=== PATIENT | female | born 1975 | race Asian ===

== ENCOUNTER 2023-02-19 20:18 | Observation (INO) ==
[2023-02-19] MEDS ORDERED: SODIUM CHLORIDE 0.9% 500 ML IV STA (20:45)
--- NOTE | 2023-02-19 21:11 | Emergency Department Note ---
Impression & Plan Atrial fibrillation with rapid ventricular response ED Provider Note INFORMANT: Patient and ED PROVIDER(S): Amos Scott MD CHIEF COMPLAINT: Palpitations PLAN: Disposition: Admitted Condition: Good Outpatient prescription management: none Referral: None . Patient has no history of the same. Blood work was obtained. She had unremarkable CBC, chemistry panel, and troponin MEDICAL DECISION MAKING: Patient presented because of palpitations. Language services used for translation. She was mildly tachycardic. ECG was performed and revealed atrial fibrillation except for a mildly low potassium. Patient was rate controlled on her own without direct intervention. Consultation was made with [facility] cardiology, Dr. Butt. Case discussed and diagnostics were reviewed. He recommended initiation of beta-lenny, repleting the potassium, and anticoagula tion with heparin and admission. We discussed oral metoprolol. These medications were ordered. Discussed with patient and . Consultation was made with Dr. Aneesh Coe, [facility] hospitalist service. Patient was evaluated in the ER admitted. Discussed with financial sales manager After review of the information above and other included data, I feel the patient requires admission. Triage Nursing notes reviewed and agree them. Vital Signs: reviewed and remarkable for no significant abnormalities Prior /Outside records reviewed: none Differential diagnosis: Premature contractions, electrolyte abnormality, cardiac dysrhythmia, thyroid dysfunction, pulmonary embolism, infection, gastrointestinal, as well as other pathologies. Diagnostics, as interpreted by me: ECG: Lead ECG reveals atrial fibrillation with rapid ventricular response at 102 bpm. Low voltage QRS. No ST elevation or depression. Nonspecific ST. Cardiac Monitoring: Cardiac monitoring ordered by me: The patient was placed on continuous cardiac monitoring and observed. It revealed a atrial fibrillation at 80 bpm. Medical decision rules: none Imaging studies: Chest x-ray. Findings: A chest x-ray was performed and revealed no pneumothorax, effusion, infiltrate, pulmonary edema, free air under the diaphragm, or wide mediastinum. Impression: No acute disease. HPI: The patient is a 48 year old female who presents to the Emergency Room with complaints of palpitations. This started at 1500 and is persisting. The patient also notes the following associated symptoms, none. The patient has taken no medication for relieving factors. Current pain is rated as 0/10. Notes occasional brief palpitations that resolved spontaneously. Pt denies LOC, headache, fevers, chills, diaphoresis, visual changes, neck pain, chest pain, breathing difficulties, nausea, vomiting, abdominal pain, back pain, numbness, weakness, or other complaints. PAST MEDICAL HISTORY: See Below, endometriosis PAST SURGICAL HISTORY: See Below, c section SOCIAL HISTORY: See Below, HOME MEDICATIONS: See Below ALLERGIES: See Below VITALS: See Below PHYSICAL EXAMINATION: GENERAL: Awake, alert, well-appearing, in no distress HENT: Normocephalic, atraumatic. Oropharynx unremarkable. EYES: Normal conjunctiva. Sclera non-icteric. NECK: Inspection normal. Non-tender. Supple. No nuchal rigidity. FROM. No masses. RESPIRATORY: Clear to auscultation. No wheezes. No rales. Normal respiratory effort. CARDIAC: Borderline tachycardic rate. irregular rhythm. No murmurs. No rubs. Extremities warm and well perfused. Pulses equal. No JVD. GI: Soft, non-distended. No tenderness to palpation. No rebound or guarding. No masses. RECTAL: Deferred. MUSCULOSKELETAL: Atraumatic. Chest examination reveals no tenderness. The back is symmetrical on inspection without obvious abnormality. There is no CVA tenderness to palpation. No joint edema. LOWER EXTREMITIES: Calves are equal size bilaterally and non-tender. No edema. No discoloration. NEURO: Normal sensorium. No sensory or motor deficits noted. SKIN: No rash or jaundice noted. Past Med/Surg History Medical History (Updated 02/19/23 @ 21:11 by Amos Scott MD) Endometriosis Surgical History History of laparoscopy Social History Smoking Status: Never smoker Preferred Language: Burundian Communication Tools: IPad marital status: current occupational status: unemployed Feels Safe at Home: Yes Allergies Allergies Allergy/AdvReac Type Severity Reaction Status Date / Time No Known Allergies Allergy Unverified 02/20/23 00:30 Home Meds Home Medications Medication Instructions Recorded Confirmed omeprazole 40 mg capsule,delayed 40 mg PO QAM 02/20/23 02/20/23 release sucralfate 1 gram tablet 1 g PO BID 02/20/23 02/20/23 Results & Data (ED) Vital Signs Vital Signs - 24 hr 02/19/23 20:24 02/19/23 20:47 02/19/23 20:46 Temperature 36.8 C Temperature Source Temporal Artery Scan Pulse Rate 91 H 94 H 92 H Pulse Rate from SpO2 Sensor 92 H Respiratory Rate 17 26 H Respiratory Effort / Characteristics Non-Labored Spontaneous Respiratory Depth Normal Blood Pressure 141/87 H 159/109 H Blood Pressure Mean 105 125 Blood Pressure Position Sitting Pulse Oximetry 100 100 Oxygen Delivery Method Room Air Sepsis Recent Fever Within 48 Hours No Sepsis New/Unexplained Change in Mental Status No Sepsis Action Taken by Nursing No Action Required 02/19/23 21:00 02/19/23 21:15 02/19/23 21:30 Temperature Temperature Source Pulse Rate 100 H 78 83 Pulse Rate from SpO2 Sensor 97 H 78 80 Respiratory Rate 13 18 17 Respiratory Effort / Characteristics Respiratory Depth Blood Pressure 150/98 H 154/113 H 130/98 Blood Pressure Mean 115 126 108 Blood Pressure Position Pulse Oximetry 100 100 100 Oxygen Delivery Method Sepsis Recent Fever Within 48 Hours Sepsis New/Unexplained Change in Mental Status Sepsis Action Taken by Nursing 02/19/23 22:00 02/19/23 22:15 02/19/23 22:30 Temperature Temperature Source Pulse Rate 72 76 74 Pulse Rate from SpO2 Sensor 81 83 80 Respiratory Rate 22 22 22 Respiratory Effort / Characteristics Respiratory Depth Blood Pressure 117/82 113/86 118/89 Blood Pressure Mean 93 95 98 Blood Pressure Position Pulse Oximetry 100 100 100 Oxygen Delivery Method Sepsis Recent Fever Within 48 Hours Sepsis New/Unexplained Change in Mental Status Sepsis Action Taken by Nursing 02/19/23 22:45 02/20/23 01:00 Temperature Temperature Source Pulse Rate 74 80 Pulse Rate from SpO2 Sensor 77 Respiratory Rate 21 Respiratory Effort / Characteristics Respiratory Depth Blood Pressure 128/98 Blood Pressure Mean 108 Blood Pressure Position Pulse Oximetry 99 Oxygen Delivery Method Sepsis Recent Fever Within 48 Hours Sepsis New/Unexplained Change in Mental Status Sepsis Action Taken by Nursing Laboratory Data 02/19/23 20:52 02/19/23 20:52 Lab Results 02/19/23 02/19/23 02/19/23 Range/Units 20:52 20:52 20:52 WBC 8.26 (4.8-10.8) K/ul RBC 4.46 (4.20-5.40) M/uL Hgb 13.7 (12.0-16.0) g/dl Hct 39.3 (37.0-47.0) % MCV 88.1 (80.0-100.0) fL MCH 30.7 (25.0-34.0) pg MCHC 34.9 (32.0-36.0) g/dL RDW Std Deviation 39.6 (36.4-46.3) fL RDW Coeff of Ruperto 12.4 (11.5-14.5) % Plt Count 173 (130-400) K/uL MPV 12.4 (9.4-12.4) fL Immature Gran % (Auto) 0.4 % Neut % (Auto) 72.9 % Lymph % (Auto) 20.2 % [place] % (Auto) 5.1 % Eos % (Auto) 1.0 % Baso % (Auto) 0.4 % Neut # (Auto) 6.03 (1.40-6.50) K/uL Lymph # (Auto) 1.67 (1.2-3.4) K/uL [place] # (Auto) 0.42 (0.11-0.59) K/uL Eos # (Auto) 0.08 (0-0.50) K/uL Baso # (Auto) 0.03 (0-0.2) K/uL Immature Gran # (Auto) 0.03 (0.01-0.20) K/uL PT (9.0-12.0) Seconds INR (0.9-1.1) APTT (21.0-31.0) Seconds PTT Ratio D-Dimer < 190 (0-500) ug/L FEU Sodium 138 (136-145) mmol/L Potassium 3.1 L (3.5-5.1) mmol/L Chloride 106 (98-107) mmol/L Carbon Dioxide 24 (21-32) mmol/L Anion Gap 8 (3-11) BUN 10 (6-23) mg/dl Creatinine 0.67 (0.6-1.2) mg/dl Est Cr Clr Drug Dosing 79.3 ml/min Est GFR ( Amer) 122.2 ml/min Est GFR (Non-Af Amer) 105.4 ml/min BUN/Creatinine Ratio 14.9 (10-20) Glucose 106 H (70-99(Fasting)) mg/dl Calcium 8.8 (8.6-10.3) mg/dl Magnesium 2.0 (1.7-2.4) mg/dl Total Bilirubin 0.4 (0.2-1.0) mg/dl AST 16 (13-39) U/L ALT 8 (7-52) U/L Alkaline Phosphatase 33 L (34-104) U/L Troponin I High Sens 3.2 (0-14) pg/ml Total Protein 7.0 (6.0-8.3) gm/dl Albumin 4.4 (3.4-5.0) gm/dl Globulin 2.6 (2.5-4.0) gm/dl Albumin/Globulin Ratio 1.7 (0.9-2) TSH (0.300-4.500) uIu/ml HCG, Qual (Negative) SARS-CoV-2, RNA, NAAT (NEGATIVE) 02/19/23 02/19/23 02/20/23 Range/Units 20:52 20:53 Unknown WBC (4.8-10.8) K/ul RBC (4.20-5.40) M/uL Hgb (12.0-16.0) g/dl Hct (37.0-47.0) % MCV (80.0-100.0) fL MCH (25.0-34.0) pg MCHC (32.0-36.0) g/dL RDW Std Deviation (36.4-46.3) fL RDW Coeff of Ruperto (11.5-14.5) % Plt Count (130-400) K/uL MPV (9.4-12.4) fL Immature Gran % (Auto) % Neut % (Auto) % Lymph % (Auto) % [place] % (Auto) % Eos % (Auto) % Baso % (Auto) % Neut # (Auto) (1.40-6.50) K/uL Lymph # (Auto) (1.2-3.4) K/uL [place] # (Auto) (0.11-0.59) K/uL Eos # (Auto) (0-0.50) K/uL Baso # (Auto) (0-0.2) K/uL Immature Gran # (Auto) (0.01-0.20) K/uL PT 10.6 (9.0-12.0) Seconds INR 1.0 (0.9-1.1) APTT 26.3 (21.0-31.0) Seconds PTT Ratio 0.9 D-Dimer (0-500) ug/L FEU Sodium (136-145) mmol/L Potassium (3.5-5.1) mmol/L Chloride (98-107) mmol/L Carbon Dioxide (21-32) mmol/L Anion Gap (3-11) BUN (6-23) mg/dl Creatinine (0.6-1.2) mg/dl Est Cr Clr Drug Dosing ml/min Est GFR ( Amer) ml/min Est GFR (Non-Af Amer) ml/min BUN/Creatinine Ratio (10-20) Glucose (70-99(Fasting)) mg/dl Calcium (8.6-10.3) mg/dl Magnesium (1.7-2.4) mg/dl Total Bilirubin (0.2-1.0) mg/dl AST (13-39) U/L ALT (7-52) U/L Alkaline Phosphatase (34-104) U/L Troponin I High Sens (0-14) pg/ml Total Protein (6.0-8.3) gm/dl Albumin (3.4-5.0) gm/dl Globulin (2.5-4.0) gm/dl Albumin/Globulin Ratio (0.9-2) TSH 1.127 (0.300-4.500) uIu/ml HCG, Qual (Negative) SARS-CoV-2, RNA, NAAT NEGATIVE (NEGATIVE) 02/20/23 Range/Units Unknown WBC (4.8-10.8) K/ul RBC (4.20-5.40) M/uL Hgb (12.0-16.0) g/dl Hct (37.0-47.0) % MCV (80.0-100.0) fL MCH (25.0-34.0) pg MCHC (32.0-36.0) g/dL RDW Std Deviation (36.4-46.3) fL RDW Coeff of Ruperto (11.5-14.5) % Plt Count (130-400) K/uL MPV (9.4-12.4) fL Immature Gran % (Auto) % Neut % (Auto) % Lymph % (Auto) % [place] % (Auto) % Eos % (Auto) % Baso % (Auto) % Neut # (Auto) (1.40-6.50) K/uL Lymph # (Auto) (1.2-3.4) K/uL [place] # (Auto) (0.11-0.59) K/uL Eos # (Auto) (0-0.50) K/uL Baso # (Auto) (0-0.2) K/uL Immature Gran # (Auto) (0.01-0.20) K/uL PT (9.0-12.0) Seconds INR (0.9-1.1) APTT (21.0-31.0) Seconds PTT Ratio D-Dimer (0-500) ug/L FEU Sodium (136-145) mmol/L Potassium (3.5-5.1) mmol/L Chloride (98-107) mmol/L Carbon Dioxide (21-32) mmol/L Anion Gap (3-11) BUN (6-23) mg/dl Creatinine (0.6-1.2) mg/dl Est Cr Clr Drug Dosing ml/min Est GFR ( Amer) ml/min Est GFR (Non-Af Amer) ml/min BUN/Creatinine Ratio (10-20) Glucose (70-99(Fasting)) mg/dl Calcium (8.6-10.3) mg/dl Magnesium (1.7-2.4) mg/dl Total Bilirubin (0.2-1.0) mg/dl AST (13-39) U/L ALT (7-52) U/L Alkaline Phosphatase (34-104) U/L Troponin I High Sens (0-14) pg/ml Total Protein (6.0-8.3) gm/dl Albumin (3.4-5.0) gm/dl Globulin (2.5-4.0) gm/dl Albumin/Globulin Ratio (0.9-2) TSH (0.300-4.500) uIu/ml HCG, Qual Negative (Negative) SARS-CoV-2, RNA, NAAT (NEGATIVE) Administered Medications Heparin Sodium/Dextrose (Heparin Sodium/Dextrose) 25,000 units in 500 mls @ 11 mls/hr IV .Q24H [facility]; Protocol Stop: 03/22/23 00:14 Last Admin: 02/20/23 01:45 Dose: 550 units/hr, 11 mls/hr Documented By: OLIVIA Co-signed By: SHAYY Discontinued Medications Sodium Chloride (Nss) 500 mls @ 999 mls/hr IV .Q31M STA Stop: 02/19/23 21:15 Last Infusion: 02/19/23 22:39 Dose: 0 mls/hr Documented By: Admin: 02/19/23 20:57 Dose: 999 mls/hr Documented By: OLIVIA Potassium Chloride (K Jamie / Wtr) 10 meq in 100 mls @ 100 mls/hr IV ONE ONE; Protocol Stop: 02/20/23 01:02 Last Admin: 02/20/23 00:26 Dose: 100 mls/hr Documented By: OLIVIA Metoprolol Tartrate (Metoprolol Tartrate 25 Mg Tab) 12.5 mg PO NOW STA Stop: 02/20/23 00:04 Last Admin: 02/20/23 00:22 Dose: 12.5 mg Documented By: OLIVIA Potassium Chloride (Potassium Chloride Crtab 20 Meq Tabcr) 40 meq PO NOW STA Stop: 02/20/23 00:04 Last Admin: 02/20/23 00:23 Dose: 40 meq Documented By: OLIVIA Imaging Data Radiologist's Impression: Chest X-Ray 02/19/23 20:45 SINGLE VIEW CHEST CLINICAL HISTORY: Dysrhythmia FINDINGS: An AP, portable, upright chest radiograph is obtained. No prior studies are available for comparison at the time of dictation. The cardiomediastinal silhouette is unremarkable. The lungs and pleural spaces are clear. No pneumothorax is seen. The bony thorax is grossly intact. IMPRESSION: No active disease in the chest. ACT 112: Negative or not required by law. Electronically signed by: Jeramy Thompson M.D. 02/19/2023 10:36 PM Discharge Plan Visit Data Chief Complaint: Tachycardia Stated Complaint: SOB,FAST HEART RATE ED Provider: Amos Scott Discharge Problem: Atrial fibrillation with rapid ventricular response Forms Stand Alone Forms: [facility] Prescriptions Prescriptions: No Action sucralfate 1 gram tablet 1 g PO BID Rx Instructions: Diissolve 1 tab into 30 ml water to make slurry. omeprazole 40 mg capsule,delayed release(DR/EC) 40 mg PO QAM Referrals Referrals: Uriel Demarco MD [Primary Care Provider] -
[2023-02-19 21:37] LABS: Albumin Globulin Ratio 1.7 (0.9-2); Albumin Level 4.4 gm/dl (3.4-5.0); BUN Creatinine Ratio 14.9 (10-20); Bilirubin,Total 0.4 mg/dl (0.2-1.0); Calcium 8.8 mg/dl (8.6-10.3); Creatinine Clr Calc Pharmacy 79.3 ml/min; Est GFR (African American) 122.2 ml/min; Est GFR (Non-African American) 105.4 ml/min; Globulin 2.6 gm/dl (2.5-4.0); Potassium 3.1 mmol/L (3.5-5.1)
[2023-02-19 21:43] LABS: Troponin I High Sensitivity 3.2 pg/ml (0-14)
[2023-02-19 21:49] LABS: Basophils # (auto) 0.03 K/uL (0-0.2); Basophils % (auto) 0.4 %; Eosinophils # (auto) 0.08 K/uL (0-0.50); Hematocrit (blood only) 39.3 % (37.0-47.0); Hemoglobin 13.7 g/dl (12.0-16.0); Immature Granulocytes # (auto) 0.03 K/uL (0.01-0.20); Immature Granulocytes % (auto) 0.4 %; Lymphocytes # (auto) 1.67 K/uL (1.2-3.4); Lymphocytes % (auto) 20.2 %; Mean Corpuscular Hemoglobin 30.7 pg (25.0-34.0); Mean Corpuscular Hgb Conc 34.9 g/dL (32.0-36.0); Mean Corpuscular Volume 88.1 fL (80.0-100.0); Mean Platelet Volume 12.4 fL (9.4-12.4); Monocytes # (auto) 0.42 K/uL (0.11-0.59); Monocytes % (auto) 5.1 %; Neutrophils # (auto) 6.03 K/uL (1.40-6.50); Neutrophils % (auto) 72.9 %; Platelet Count 173 K/uL (130-400); RDW Coefficient of Variation 12.4 % (11.5-14.5); RDW Standard Deviation 39.6 fL (36.4-46.3); Red Blood Count 4.46 M/uL (4.20-5.40); White Blood Count 8.26 K/ul (4.8-10.8)
[2023-02-19 21:56] LABS: D Dimer < 190 ug/L FEU (0-500)
--- NOTE | 2023-02-19 22:37 | XRay Report ---
SINGLE VIEW CHEST CLINICAL HISTORY: Dysrhythmia FINDINGS: An AP, portable, upright chest radiograph is obtained. No prior studies are available for c omparison at the time of dictation. The cardiomediastinal silhouette is unremarkable. The lungs and p leural spaces are clear. No pneumothorax is seen. The bony thorax is grossly intact. IMPRESSION: No active disease in the chest. ACT 112: Negative or not required by law. Electronically signed by: Jeramy Thompson M.D. 02/19/2023 10:36 PM
[2023-02-20] MEDS ORDERED: METOPROLOL TARTRATE 25 MG TAB PO STA (00:03)
[2023-02-20] MEDS ORDERED: POTASSIUM CHLORIDE CRTAB 20 MEQ TABCR PO STA (00:03)
[2023-02-20] MEDS ORDERED: POTASSIUM CHLORIDE / WTR 10 MEQ/100 ML PLCT IV ONE (00:03)
[2023-02-20] MEDS ORDERED: Heparin IV Adult Wt-Based Low-Dose *NO* Bolus Protocol IV ONE (00:04)
[2023-02-20] MEDS ORDERED: HEPARIN SODIUM/DEXTROSE 25,000 UNITS/500 ML BAG IV SCH (00:15)
[2023-02-20 00:37] LABS: Pregnancy Test, Serum Negative (Negative)
[2023-02-20 00:41] LABS: Partial Thromboplastin Ratio 0.9; Partial Thromboplastin Time 26.3 Seconds (21.0-31.0); Prothrombin Time 10.6 Seconds (9.0-12.0)
--- NOTE | 2023-02-20 01:44 | History & Physical Report ---
Date of Service February 20, 2023 Assessment & Plan (1) Afib: Plan: New onset A-fib Multifactorial: Hypokalemia Personal stressors GERD stable on regimen PCU Beta-lenny for rate control IV heparin for thromboembolic prophylaxis TTE, Cardiology consult Re: New onset A-fib (ER provider already in touch with Dr. Butt.) Replace potassium DVT prophylaxis. IV heparin Full code Patient requesting updates providers. Mr. Wilmer Lees, contact #[phone]. Text document was generated using [employer] voice recognition software. It may contain grammatical or spelling errors. Kindly contact undersigned for clarification of any documentation item in question. History of Present Illness Chief Complaint: Palpitations Primary Care Provider: Uriel Demarco MD History obtained from patient, family, and records. History somewhat limited from patient secondary to language barrier. Medical history significant for GERD, endometriosis. Patient noted palpitations yesterday. No chest pain, no SOB. Some stress related to moved to a new home. Patient noted to be in A-fib at the ER. Lopressor and IV heparin administered at the ER following cardiology recommendations as per ER provider. Medical History as above Surgical History : section, diagnostic laparoscopy for endometriosis Family History : Stomach cancer, no heart disease Personal/Social history : Non-smoker, occasional EtOH intake, housewife Allergies Allergy/AdvReac Type Severity Reaction Status Date / Time No Known Allergies Allergy Unverified 02/20/23 00:30 Home Medications Medication Instructions Recorded Confirmed Type omeprazole 40 mg capsule,delayed 40 mg PO QAM 02/20/23 02/20/23 History release sucralfate 1 gram tablet 1 g PO BID 02/20/23 02/20/23 History Past Med/Surg History Medical History (Updated 02/20/23 @ 06:18 by Aneesh Coe MD) Endometriosis Surgical History History of laparoscopy Social History Smoking Status: Never smoker Hx Alcohol Use: Yes Preferred Language: Mohawk Communication Ability: Impaired Communication Tools: IPad Machine Oiler Required: Video marital status: current occupational status: unemployed Feels Safe at Home: Yes Review of Systems Review of Systems: Could not be reliably obtained secondary to language barrier Physical Exam Physical Exam: GENERAL: Comfortable, pleasant, no respiratory distress SKIN: Normal color, warm HEENT: [place] palpebral conjunctivae, no ptosis, dry buccal mucosa NECK : Supple, no tenderness CHEST : CTA, no tenderness HEART : Irregular, no obvious murmurs ABDOMEN: No distention, nontender EXTREMITIES : No LE swelling/tenderness, no other conspicuous deformities noted NEUROLOGIC : Coherent, no facial asymmetry, no other gross focality Results & Data Results & Data Vital Signs (Past 12 Hours) Vital Signs Temp Pulse Resp BP Pulse Ox O2 Del Method 02/20/23 01:00 80 02/19/23 22:45 74 21 128/98 99 02/19/23 22:30 74 22 118/89 100 02/19/23 22:15 76 22 113/86 100 02/19/23 22:00 72 22 117/82 100 02/19/23 21:30 83 17 130/98 100 02/19/23 21:15 78 18 154/113 H 100 02/19/23 21:00 100 H 13 150/98 H 100 02/19/23 20:46 92 H 26 H 159/109 H 100 02/19/23 20:47 94 H 02/19/23 20:24 36.8 C 91 H 17 141/87 H 100 Room Air Laboratory Results Laboratory Results WBC 8.26 K/ul (4.8-10.8) 02/19/23 20:52 RBC 4.46 M/uL (4.20-5.40) 02/19/23 20:52 Hgb 13.7 g/dl (12.0-16.0) 02/19/23 20:52 Hct 39.3 % (37.0-47.0) 02/19/23 20:52 MCV 88.1 fL (80.0-100.0) 02/19/23 20:52 MCH 30.7 pg (25.0-34.0) 02/19/23 20:52 MCHC 34.9 g/dL (32.0-36.0) 02/19/23 20:52 RDW Std Deviation 39.6 fL (36.4-46.3) 02/19/23 20:52 RDW Coeff of Ruperto 12.4 % (11.5-14.5) 02/19/23 20:52 Plt Count 173 K/uL (130-400) 02/19/23 20:52 MPV 12.4 fL (9.4-12.4) 02/19/23 20:52 Immature Gran % (Auto) 0.4 % 02/19/23 20:52 Neut % (Auto) 72.9 % 02/19/23 20:52 Lymph % (Auto) 20.2 % 02/19/23 20:52 [place] % (Auto) 5.1 % 02/19/23 20:52 Eos % (Auto) 1.0 % 02/19/23 20:52 Baso % (Auto) 0.4 % 02/19/23 20:52 Neut # (Auto) 6.03 K/uL (1.40-6.50) 02/19/23 20:52 Lymph # (Auto) 1.67 K/uL (1.2-3.4) 02/19/23 20:52 [place] # (Auto) 0.42 K/uL (0.11-0.59) 02/19/23 20:52 Eos # (Auto) 0.08 K/uL (0-0.50) 02/19/23 20:52 Baso # (Auto) 0.03 K/uL (0-0.2) 02/19/23 20:52 Immature Gran # (Auto) 0.03 K/uL (0.01-0.20) 02/19/23 20:52 PT 10.6 Seconds (9.0-12.0) 02/20/23 Unknown INR 1.0 (0.9-1.1) 02/20/23 Unknown APTT 26.3 Seconds (21.0-31.0) 02/20/23 Unknown PTT Ratio 0.9 02/20/23 Unknown D-Dimer < 190 ug/L FEU (0-500) 02/19/23 20:52 Sodium 138 mmol/L (136-145) 02/19/23 20:52 Potassium 3.1 mmol/L (3.5-5.1) L 02/19/23 20:52 Chloride 106 mmol/L (98-107) 02/19/23 20:52 Carbon Dioxide 24 mmol/L (21-32) 02/19/23 20:52 Anion Gap 8 (3-11) 02/19/23 20:52 BUN 10 mg/dl (6-23) 02/19/23 20:52 Creatinine 0.67 mg/dl (0.6-1.2) 02/19/23 20:52 Est Cr Clr Drug Dosing 79.3 ml/min 02/19/23 20:52 Est GFR ( Amer) 122.2 ml/min 02/19/23 20:52 Est GFR (Non-Af Amer) 105.4 ml/min 02/19/23 20:52 BUN/Creatinine Ratio 14.9 (10-20) 02/19/23 20:52 Glucose 106 mg/dl (70-99(Fasting)) H 02/19/23 20:52 Calcium 8.8 mg/dl (8.6-10.3) 02/19/23 20:52 Magnesium 2.0 mg/dl (1.7-2.4) 02/19/23 20:52 Total Bilirubin 0.4 mg/dl (0.2-1.0) 02/19/23 20:52 AST 16 U/L (13-39) 02/19/23 20:52 ALT 8 U/L (7-52) 02/19/23 20:52 Alkaline Phosphatase 33 U/L (34-104) L 02/19/23 20:52 Troponin I High Sens 3.2 pg/ml (0-14) 02/19/23 20:52 Total Protein 7.0 gm/dl (6.0-8.3) 02/19/23 20:52 Albumin 4.4 gm/dl (3.4-5.0) 02/19/23 20:52 Globulin 2.6 gm/dl (2.5-4.0) 02/19/23 20:52 Albumin/Globulin Ratio 1.7 (0.9-2) 02/19/23 20:52 TSH 1.127 uIu/ml (0.300-4.500) 02/19/23 20:52 HCG, Qual Negative (Negative) 02/20/23 Unknown SARS-CoV-2, RNA, NAAT NEGATIVE (NEGATIVE) 02/19/23 20:53 Impressions Chest X-Ray 02/19/23 20:45 SINGLE VIEW CHEST CLINICAL HISTORY: Dysrhythmia FINDINGS: An AP, portable, upright chest radiograph is obtained. No prior studies are available for comparison at the time of dictation. The cardiomediastinal silhouette is unremarkable. The lungs and pleural spaces are clear. No pneumothorax is seen. The bony thorax is grossly intact. IMPRESSION: No active disease in the chest. ACT 112: Negative or not required by law. Electronically signed by: Jeramy Thompson M.D. 02/19/2023 10:36 PM Diagnostic Findings EKG as per my interpretation :Rate 105, A-fib, normal axis, T wave abnormalities inferior leads, low voltage
[2023-02-20] MEDS ORDERED: NSS + 20MEQ KCL 20 MEQ/1,000 ML BAG IV ONE (01:50)
[2023-02-20] MEDS ORDERED: POTASSIUM CHLORIDE CRTAB 20 MEQ TABCR PO ONE (02:00)
[2023-02-20] MEDS ORDERED: PROMETHAZINE HCL 6.25 MG in SODIUM CHLORIDE 0.9% 50 ML IV PRN (03:27)
[2023-02-20] MEDS ORDERED: traMADol HCL 50 MG TABLET PO PRN (03:27)
[2023-02-20] MEDS ORDERED: ACETAMINOPHEN 325 MG TAB PO PRN (03:27)
[2023-02-20 08:10] LABS: Basophils # (auto) 0.03 K/uL (0-0.2); Basophils % (auto) 0.4 %; Eosinophils # (auto) 0.04 K/uL (0-0.50); Eosinophils % (auto) 0.5 %; Hematocrit (blood only) 40.3 % (37.0-47.0); Hemoglobin 13.9 g/dl (12.0-16.0); Immature Granulocytes # (auto) 0.11 K/uL (0.01-0.20); Immature Granulocytes % (auto) 1.4 %; Lymphocytes # (auto) 1.38 K/uL (1.2-3.4); Mean Corpuscular Hemoglobin 29.9 pg (25.0-34.0); Mean Corpuscular Hgb Conc 34.5 g/dL (32.0-36.0); Mean Corpuscular Volume 86.7 fL (80.0-100.0); Mean Platelet Volume 12.4 fL (9.4-12.4); Monocytes # (auto) 0.32 K/uL (0.11-0.59); Monocytes % (auto) 4.2 %; Neutrophils # (auto) 5.79 K/uL (1.40-6.50); Neutrophils % (auto) 75.5 %; Platelet Count 180 K/uL (130-400); RDW Coefficient of Variation 12.4 % (11.5-14.5); RDW Standard Deviation 38.8 fL (36.4-46.3); Red Blood Count 4.65 M/uL (4.20-5.40); White Blood Count 7.67 K/ul (4.8-10.8)
[2023-02-20 08:22] LABS: BUN Creatinine Ratio 8.8 (10-20); Calcium 8.8 mg/dl (8.6-10.3); Creatinine Clr Calc Pharmacy 78.2 ml/min; Est GFR (African American) 121.6 ml/min; Est GFR (Non-African American) 104.9 ml/min; Potassium 4.7 mmol/L (3.5-5.1)
--- NOTE | 2023-02-20 08:32 | Hospitalist Progress Note ---
Date of Service February 20, 2023 Assessment & Plan (1) Afib: Plan: New onset A-fib Multifactorial: Hypokalemia Personal stressors GERD stable on regimen PCU Beta-lenny for rate control IV heparin for thromboembolic prophylaxis TTE, cardiology consult Re: New onset A-fib (ER provider already in touch with Dr. Butt.) Replace potassium DVT prophylaxis. IV heparin Full code Patient requesting updates providers. Mr. Wilmer Lees, contact #[phone]. Text document was generated using [employer] voice recognition software. It may contain grammatical or spelling errors. Kindly contact undersigned for clarification of any documentation item in question. Admission and Anticipated Discharge Date Admission Date: February 20, 2023 Results & Data Results & Data Vital Signs (Past 12 Hours) Vital Signs Temp Pulse Pulse Resp BP BP Pulse Ox 02/20/23 08:26 36.5 C 79 20 120/85 99 02/20/23 03:28 71 02/20/23 03:30 02/20/23 03:27 36.6 C 16 129/88 99 02/20/23 03:00 78 20 98 02/20/23 03:00 125/82 02/20/23 02:45 71 20 115/89 98 02/20/23 02:30 70 10 L 117/93 98 02/20/23 02:15 73 0 L 130/91 98 02/20/23 02:00 78 18 115/85 99 02/20/23 01:45 84 13 116/81 98 02/20/23 01:30 79 25 H 139/103 H 100 02/20/23 01:22 74 15 132/97 100 02/20/23 01:15 80 18 179/134 H 100 02/20/23 01:01 83 17 142/92 H 100 02/20/23 00:45 84 18 142/113 H 100 02/20/23 00:30 93 02/20/23 00:15 84 21 129/91 98 02/20/23 00:00 82 20 123/84 97 02/19/23 23:30 91 H 17 125/75 99 02/19/23 23:15 82 24 139/83 99 02/19/23 23:00 75 18 133/76 99 02/20/23 01:00 80 02/19/23 22:45 74 21 128/98 99 02/19/23 22:30 74 22 118/89 100 02/19/23 22:15 76 22 113/86 100 02/19/23 22:00 72 22 117/82 100 02/19/23 21:30 83 17 130/98 100 02/19/23 21:15 78 18 154/113 H 100 02/19/23 21:00 100 H 13 150/98 H 100 02/19/23 20:46 92 H 26 H 159/109 H 100 02/19/23 20:47 94 H O2 Del Method 02/20/23 08:26 Room Air 02/20/23 03:28 02/20/23 03:30 Room Air 02/20/23 03:27 Room Air 02/20/23 03:00 02/20/23 03:00 02/20/23 02:45 02/20/23 02:30 02/20/23 02:15 02/20/23 02:00 02/20/23 01:45 02/20/23 01:30 02/20/23 01:22 02/20/23 01:15 02/20/23 01:01 02/20/23 00:45 02/20/23 00:30 02/20/23 00:15 02/20/23 00:00 02/19/23 23:30 02/19/23 23:15 02/19/23 23:00 02/20/23 01:00 02/19/23 22:45 02/19/23 22:30 02/19/23 22:15 02/19/23 22:00 02/19/23 21:30 02/19/23 21:15 02/19/23 21:00 02/19/23 20:46 02/19/23 20:47 Laboratory Results Short CBC 02/19/23 02/20/23 Range/Units 20:52 07:37 WBC 8.26 7.67 (4.8-10.8) K/ul Hgb 13.7 13.9 (12.0-16.0) g/dl Hct 39.3 40.3 (37.0-47.0) % Plt Count 173 180 (130-400) K/uL BMP 02/19/23 02/20/23 20:52 07:37 Sodium 138 139 Potassium 3.1 L 4.7 D Chloride 106 109 H Carbon Dioxide 24 26 BUN 10 6 Creatinine 0.67 0.68 Glucose 106 H 87 Calcium 8.8 8.8 Liver Function 02/19/23 Range/Units 20:52 Total Bilirubin 0.4 (0.2-1.0) mg/dl AST 16 (13-39) U/L ALT 8 (7-52) U/L Alkaline Phosphatase 33 L (34-104) U/L Albumin 4.4 (3.4-5.0) gm/dl Diagnostic Findings Chest X-Ray 02/19/23 20:45 SINGLE VIEW CHEST CLINICAL HISTORY: Dysrhythmia FINDINGS: An AP, portable, upright chest radiograph is obtained. No prior studies are available for comparison at the time of dictation. The cardiomediastinal silhouette is unremarkable. The lungs and pleural spaces are clear. No pneumothorax is seen. The bony thorax is grossly intact. IMPRESSION: No active disease in the chest. ACT 112: Negative or not required by law. Electronically signed by: Jeramy Thompson M.D. 02/19/2023 10:36 PM Medications Administered Current Inpatient Medications Acetaminophen (Acetaminophen 325 Mg Tab) 650 mg PO Q6H PRN PRN Reason: Fever/Pain Stop: 03/22/23 03:26 Heparin Sodium/Dextrose (Heparin Sodium/Dextrose) 25,000 units in 500 mls @ 11 mls/hr IV .Q24H KAMALJIT; Protocol Stop: 03/22/23 00:14 Last Titration: 02/20/23 07:04 Dose: 550 units/hr, 11 mls/hr Potassium Chloride/Sodium Chloride (Normal Saline W/20 Meq Kcl) 20 meq in 1,000 mls @ 50 mls/hr IV .Q20H ONE; Protocol Stop: 02/20/23 21:49 Last Admin: 02/20/23 04:12 Dose: 50 mls/hr Promethazine HCl 6.25 mg/ (Sodium Chloride) 50.25 mls @ 201 mls/hr IV Q6H PRN PRN Reason: Nausea And Vomiting Stop: 03/22/23 03:26 Metoprolol Tartrate (Metoprolol Tartrate 25 Mg Tab) 12.5 mg PO BID [facility] Stop: 03/22/23 20:59 Pantoprazole Sodium (Pantoprazole 40 Mg Tab) 40 mg PO QAM KAMALJIT Stop: 03/22/23 08:59 Sucralfate (Sucralfate 1 Gm Tab) 1 gm PO BID KAMALJIT Stop: 03/22/23 08:59 Tramadol HCl (Tramadol Hcl 50 Mg Tablet) 25 mg PO Q4H PRN PRN Reason: Pain Stop: 03/22/23 03:26
[2023-02-20 08:41] LABS: Partial Thromboplastin Ratio 1.5
[2023-02-20 08:46] LABS: Partial Thromboplastin Time 41.2 Seconds (21.0-31.0)
[2023-02-20] MEDS ORDERED: SUCRALFATE 1 GM TAB PO SCH (09:00)
[2023-02-20] MEDS ORDERED: PANTOprazole 40 MG TAB PO SCH (09:00)
--- NOTE | 2023-02-20 14:38 | Cardiology Consultation ---
Date of Consultation February 20, 2023 Assessment & Plan (1) Atrial fibrillation with rapid ventricular response: (2) Barretts esophagus: Plan Patient is a 48-year-old female presents with new onset atrial fibrillation and elevated ventricular response rate with sensation of palpitations. No structural heart disease or signs of ischemia. Left atrial size normal Heart rates have come under better control but not completely with low-dose beta-lenny Recommendations: Change metoprolol to tartrate to metoprolol succinate 25 mg daily. Suspect patient will convert to sinus rhythm. Patient to follow heart rate using heart rate monitor watch. If elevated heart rates observed contact cardiology regarding medication adjustment. Anticoagulation with Eliquis 5 mg twice per day x30 days. [id number] 2 score 0 Continue potassium supplement 10 mequivalents p.o. daily post discharge Continue omeprazole and sucralfate Heart healthy diet with adequate hydration. We will arrange cardiology follow-up approximately 14 days History of Present Illness Reason for Consultation: New onset atrial fibrillation Requesting Physician: Dr. Calderón Attending Physician: Octavia Calderón, History of Present Illness Patient is a 48-year-old [place] female without prior history of cardiac disease as underlying medical issues include 1. Nogueira's esophagus on chronic suppressive therapy, routine yearly surveillance Note history obtained using online translation service [id number] Patient presents now noting sensation of palpitations beginning day prior to admission possibly longer. Episode more persistent yesterday and resulted in ER presentations where she was found to be in atrial fibrillation with variable rate response. No other acute findings other than hypokalemia. Patient no prior history of TIA or stroke or underlying cardiac disease. No fevers chills or acute complaints Increased stress emotionally recently with plans to relocate permanently to [facility] in 3-week No bleeding issues. GI issues stable. Taking medications as prescribed Laboratory studies notable only for potassium of 3.1. EKG without ischemic. Echocardiogram with essentially normal study Allergies Allergy/AdvReac Type Severity Reaction Status Date / Time No Known Allergies Allergy Unverified 02/20/23 00:30 Home Medications Medication Instructions Recorded Confirmed Type omeprazole 40 mg capsule,delayed 40 mg PO QAM 02/20/23 02/20/23 History release sucralfate 1 gram tablet 1 g PO BID 02/20/23 02/20/23 History Patient History Medical History Endometriosis Surgical History History of laparoscopy Social History Smoking Status: Never smoker Hx Alcohol Use: Yes Preferred Language: Cuban Communication Ability: Impaired Communication Tools: IPad [employer] E Business Developer Required: Video marital status: current occupational status: unemployed Feels Safe at Home: Yes Physical Exam Constitutional: + thin; no acute distress Eyes: PERRL, conjunctivae normal, anicteric sclerae ENMT: external ear and nose normal, oropharynx normal Neck: trachea midline, no thyromegaly Respiratory: normal respiratory effort, lungs clear to auscultation Cardiovascular: Rate/Rhythm: + irregularly irregular Heart Sounds: normal S1 and normal S2; no murmur Vessels: no JVD Extremities: no edema Gastrointestinal (Abdomen): normal bowel sounds, soft, nontender, no hepatosplenomegaly Skin: no rashes, warm and dry Results & Data Vital Signs (Past 12 Hours) Vital Signs Temp Pulse Pulse Resp BP BP Pulse Ox 02/20/23 11:30 36.7 C 91 H 20 127/85 98 02/20/23 08:30 72 02/20/23 08:26 36.5 C 79 20 120/85 99 02/20/23 03:28 71 02/20/23 03:30 02/20/23 03:27 36.6 C 16 129/88 99 02/20/23 03:00 78 20 98 02/20/23 03:00 125/82 02/20/23 02:45 71 20 115/89 98 O2 Del Method 02/20/23 11:30 Room Air 02/20/23 08:30 02/20/23 08:26 Room Air 02/20/23 03:28 02/20/23 03:30 Room Air 02/20/23 03:27 Room Air 02/20/23 03:00 02/20/23 03:00 02/20/23 02:45 Laboratory Results Laboratory Results - last 24 hr 02/19/23 02/19/23 02/19/23 20:52 20:52 20:52 WBC 8.26 RBC 4.46 Hgb 13.7 Hct 39.3 MCV 88.1 MCH 30.7 MCHC 34.9 RDW Std Deviation 39.6 RDW Coeff of Ruperto 12.4 Plt Count 173 MPV 12.4 Immature Gran % (Auto) 0.4 Neut % (Auto) 72.9 Lymph % (Auto) 20.2 [place] % (Auto) 5.1 Eos % (Auto) 1.0 Baso % (Auto) 0.4 Neut # (Auto) 6.03 Lymph # (Auto) 1.67 [place] # (Auto) 0.42 Eos # (Auto) 0.08 Baso # (Auto) 0.03 Immature Gran # (Auto) 0.03 PT INR APTT PTT Ratio D-Dimer < 190 Sodium 138 Potassium 3.1 L Chloride 106 Carbon Dioxide 24 Anion Gap 8 BUN 10 Creatinine 0.67 Est Cr Clr Drug Dosing 79.3 Est GFR ( Amer) 122.2 Est GFR (Non-Af Amer) 105.4 BUN/Creatinine Ratio 14.9 Glucose 106 H Calcium 8.8 Magnesium 2.0 Total Bilirubin 0.4 AST 16 ALT 8 Alkaline Phosphatase 33 L Troponin I High Sens 3.2 Total Protein 7.0 Albumin 4.4 Globulin 2.6 Albumin/Globulin Ratio 1.7 TSH HCG, Qual SARS-CoV-2, RNA, NAAT 02/19/23 02/19/23 02/20/23 20:52 20:53 07:37 WBC RBC Hgb Hct MCV MCH MCHC RDW Std Deviation RDW Coeff of Ruperto Plt Count MPV Immature Gran % (Auto) Neut % (Auto) Lymph % (Auto) [place] % (Auto) Eos % (Auto) Baso % (Auto) Neut # (Auto) Lymph # (Auto) [place] # (Auto) Eos # (Auto) Baso # (Auto) Immature Gran # (Auto) PT INR APTT 41.2 H* PTT Ratio 1.5 D-Dimer Sodium Potassium Chloride Carbon Dioxide Anion Gap BUN Creatinine Est Cr Clr Drug Dosing Est GFR ( Amer) Est GFR (Non-Af Amer) BUN/Creatinine Ratio Glucose Calcium Magnesium Total Bilirubin AST ALT Alkaline Phosphatase Troponin I High Sens Total Protein Albumin Globulin Albumin/Globulin Ratio TSH 1.127 HCG, Qual SARS-CoV-2, RNA, NAAT NEGATIVE 02/20/23 02/20/23 02/20/23 07:37 07:37 Unknown WBC 7.67 RBC 4.65 Hgb 13.9 Hct 40.3 MCV 86.7 MCH 29.9 MCHC 34.5 RDW Std Deviation 38.8 RDW Coeff of Ruperto 12.4 Plt Count 180 MPV 12.4 Immature Gran % (Auto) 1.4 Neut % (Auto) 75.5 Lymph % (Auto) 18.0 [place] % (Auto) 4.2 Eos % (Auto) 0.5 Baso % (Auto) 0.4 Neut # (Auto) 5.79 Lymph # (Auto) 1.38 [place] # (Auto) 0.32 Eos # (Auto) 0.04 Baso # (Auto) 0.03 Immature Gran # (Auto) 0.11 PT 10.6 INR 1.0 APTT 26.3 PTT Ratio 0.9 D-Dimer Sodium 139 Potassium 4.7 D Chloride 109 H Carbon Dioxide 26 Anion Gap 4 BUN 6 Creatinine 0.68 Est Cr Clr Drug Dosing 78.2 Est GFR ( Amer) 121.6 Est GFR (Non-Af Amer) 104.9 BUN/Creatinine Ratio 8.8 L Glucose 87 Calcium 8.8 Magnesium Total Bilirubin AST ALT Alkaline Phosphatase Troponin I High Sens Total Protein Albumin Globulin Albumin/Globulin Ratio TSH HCG, Qual SARS-CoV-2, RNA, NAAT 02/20/23 Unknown WBC RBC Hgb Hct MCV MCH MCHC RDW Std Deviation RDW Coeff of Ruperto Plt Count MPV Immature Gran % (Auto) Neut % (Auto) Lymph % (Auto) [place] % (Auto) Eos % (Auto) Baso % (Auto) Neut # (Auto) Lymph # (Auto) [place] # (Auto) Eos # (Auto) Baso # (Auto) Immature Gran # (Auto) PT INR APTT PTT Ratio D-Dimer Sodium Potassium Chloride Carbon Dioxide Anion Gap BUN Creatinine Est Cr Clr Drug Dosing Est GFR ( Amer) Est GFR (Non-Af Amer) BUN/Creatinine Ratio Glucose Calcium Magnesium Total Bilirubin AST ALT Alkaline Phosphatase Troponin I High Sens Total Protein Albumin Globulin Albumin/Globulin Ratio TSH HCG, Qual Negative SARS-CoV-2, RNA, NAAT
[2023-02-20] MEDS ORDERED: APIXABAN 5 MG TABLET PO ONE (14:40)
[2023-02-20] MEDS ORDERED: METOPROLOL SUCC 25MG EXT REL TAB PO SCH (14:45)
[2023-02-20] MEDS ORDERED: WARFARIN SOD 5 MG TAB PO STA (16:09)
--- NOTE | 2023-02-20 16:22 | Discharge Summary ---
Discharge Summary Date of Service February 20, 2023 Notes For Next Care Provider Please ensure INR is monitored for goal INR 2-3. Medication Changes From Visit NEW apixaban Admission HPI Per Admitting Provider History obtained from patient, family, and records. History somewhat limited from patient secondary to language barrier. Medical history significant for GERD, endometriosis. Patient noted palpitations yesterday. No chest pain, no SOB. Some stress related to moved to a new home. Patient noted to be in A-fib at the ER. Lopressor and IV heparin administered at the ER following cardiology recommendations as per ER provider. Medical History as above Surgical History : section, diagnostic laparoscopy for endometriosis Family History : Stomach cancer, no heart disease Personal/Social history : Non-smoker, occasional EtOH intake, housewife Principal Dx & Hospital Course #1 = Principal Diagnosis Updated Medication List Medication Instructions Recorded Confirmed Type apixaban 5 mg tablet (Eliquis) 5 mg PO BID #60 tabs 02/20/23 Rx metoprolol succinate 25 mg 25 mg PO QAM #60 tabs 02/20/23 Rx tablet,extended release 24 hr omeprazole 40 mg capsule,delayed 40 mg PO QAM 02/20/23 02/20/23 History release potassium chloride 10 mEq 10 meq PO DAILY #30 caps 02/20/23 Rx capsule,extended release sucralfate 1 gram tablet 1 g PO BID 02/20/23 02/20/23 History Hospital Stay Data Consultations 02/20/23 00:13 ED Decision to Admit Stat 02/20/23 01:48 Consult Cardiology Routine Pending Results Patient Have Any Pending Studies at Discharge: No Discharge Instructions Given to Patient (Per Discharging Provider) Please take all medications as instructed on discharge list below. You were diagnosed with a heart condition called atrial fibrillation. As this may put you at higher risk for stroke, a blood thinner called apixaban is recommended. (Apixaban and rivaroxaban are first line choice but were not covered by insurance unless a prior authorization is performed first. Dr. Butt's office will do this on Wednesday and contact you. They also may have a discount card for a one month's supply of apixaban) PLEASE DO NOT TAKE THE WARFARIN PREVIOUSLY PRESCRIBED. You should take the apixaban which is being given to you at time of discharge to cover you until you can obtain your updated prescription at [facility]. Please contact [facility] Cardiology clinic at the number above on Wednesday to ensure your prescription for apixaban has been placed and is cleared for pickup. To control your heart rate better, you are being placed on a medication called metoprolol. Please continue to follow your heart rate using your watch and if you observe heart rates that are elevated, please contact the cardiology office with Luc (above number) for a medication adjustment. Please continue a low dos potassium supplement daily, and stay adequately hydrated. [facility] will contact you by phone to arrange cardiology follow-up approximately 14 days. It was a pleasure taking care of you! Please call if you have any questions or problems. You can reach a [facility] hospitalist on duty at [facility] 24 hours a day by calling [phone]. Take care of yourself. Octavia Calderón, DO [facility]
[2023-02-20] MEDS ORDERED: APIXABAN 5 MG TABLET PO SCH ×2 (16:30→21:00)
--- NOTE | 2023-02-20 17:38 | Electrocardiogram Report ---
Test Reason : Blood Pressure : / mmHG Vent. Rate : 102 BPM Atrial Rate : 000 BPM P-R Int : 000 ms QRS Dur : 082 ms QT Int : 304 ms P-R-T Axes : 000 084 011 degrees QTc Int : 396 ms Atrial fibrillation with rapid ventricular response Low voltage QRS Cannot rule out Anterior infarct , age undetermined Abnormal ECG No previous ECGs available Confirmed by Yahir Hood ([id number]) on 02/20/2023 5:37:47 PM Referred By: REFERRED SELF Confirmed By:Yahir Hood
[2023-02-20] MEDS ORDERED: METOPROLOL TARTRATE 25 MG TAB PO SCH (21:00)
== END 2023-02-20 17:33 | disposition home or self-care (01) | DRG 310 ==
LOC: ED 20:18 → 2S 02-20 01:46 → INTOOBSV 02-20 01:46 → 2S 02-20 03:25